=== PATIENT | female | born 1975 | race Caucasian/White ===

== ENCOUNTER 2021-09-02 10:34 | Emergency (ER) | payer OTHER, BC ==
[2021-09-02] MEDS: Acetaminophen 325 MG Tab PO ONE (11:00)
[2021-09-02] MEDS ORDERED: Acetaminophen 325 MG Tab ONE (11:27)
== END 2021-09-02 12:00 | disposition home or self-care (01) ==
LOC: LB.ED 10:34
DX: S93.401A Sprain of unspecified ligament of right ankle, initial encounter (principal); Z88.2 Allergy status to sulfonamides; Z88.8 Allergy status to other drugs, medicaments and biological substances; X50.1XXA Overexertion from prolonged static or awkward postures, initial encounter
CPT/HCPCS: 73610; 99283; A9270

== ENCOUNTER 2024-03-04 15:55 | Emergency (ER) | payer OTHER ==
[2024-03-04] MEDS ORDERED: Sodium Chloride 0.9% 10 ML Syringe FLUSH PRN (16:10)
[2024-03-04 16:25] LABS: BASOPHILS ABSOLUTE AUTO 0.05 K/uL (0.02-0.10); BASOPHILS PERCENT AUTO 0.6 % (0.0-0.5); EOSINOPHILS ABSOLUTE AUTO 0.31 K/uL (0.04-0.40); EOSINOPHILS PERCENT AUTO 3.5 % (1.0-5.0); HEMATOCRIT 40.2 % (37.0-47.0); HEMOGLOBIN 13.5 g/dL (11.5-16.5); LYMPHOCYTES ABSOLUTE AUTO 1.97 K/uL (1.50-4.00); LYMPHOCYTES PERCENT AUTO 21.9 % (20.0-40.0); MEAN CORPUSCULAR HEMOGLOBIN 28.5 pg (27.0-32.0); MEAN CORPUSCULAR HGB CONC 33.6 g/dL (31.0-35.0); MEAN CORPUSCULAR VOLUME 85 fL (76-96); MONOCYTES ABSOLUTE AUTO 0.75 K/uL (0.20-0.80); MONOCYTES PERCENT AUTO 8.4 % (3.0-10.0); NEUTROPHILS PERCENT AUTO 65.6 % (45.0-70.0); PLATELET COUNT,PLT 289 K/uL (150-500); RED BLOOD CELL COUNT 4.73 M/uL (3.80-5.80); RED CELL DISTRIBUTION WIDTH 13.4 % (11.0-16.0)
[2024-03-04 16:37] LABS: ANION GAP 15.1 mmol/L (5.0-15.0); BUN/CREATININE RATIO 12.1 (6-25); CALCIUM 9.8 mg/dL (8.5-10.1); CARBON DIOXIDE,CO2 24.4 mmol/L (21.0-32.0); CREATININE 1.49 mg/dL (0.55-1.02); EST CRCL DRUG DOSING (CG) 41.1 mL/min; POTASSIUM,K 3.5 mmol/L (3.5-5.1)
[2024-03-04] MEDS: Aspirin 325 MG Tab.EC PO ONE (16:37)
[2024-03-04] MEDS: Aspirin 81 MG Tab.Chew PO ONE (17:28)
[2024-03-04 18:23] LABS: TROPONIN I HIGH SENSITIVITY < 4.0 pg/ml (<=60.4)
== END 2024-03-04 18:32 | disposition home or self-care (01) ==
LOC: LB.ED 15:55
DX: R07.89 Other chest pain (principal); Z90.49 Acquired absence of other specified parts of digestive tract; Z79.899 Other long term (current) drug therapy; Z88.1 Allergy status to other antibiotic agents; Z88.2 Allergy status to sulfonamides; Z88.8 Allergy status to other drugs, medicaments and biological substances
CPT/HCPCS: 36415; 71045; 80048; 83735; 84484; 85025; 85379; 93005; 93010; 99284; 99285; A9270-GY